=== PATIENT | female | born 1980 | race Caucasian/White ===

== ENCOUNTER 2016-09-23 05:43 | Emergency (ER) | payer OTHER ==
[~2016-09-23] VITALS: Ht 170.2 cm; Wt 55.0 kg
[2016-09-23 05:45] VITALS: BP 124/88; PULSE 90; RESP 20; O2SAT 100
[2016-09-23] MEDS ORDERED: KETOROLAC TROMETHAMINE 60 MG/2 ML (IM) VIAL IM ONE (05:45)
[2016-09-23] MEDS ORDERED: ACETAMINOPHEN/CODEINE 300 MG/30 MG TAB PO ONE (05:45)
[2016-09-23] MEDS ORDERED: ONDANSETRON ODT 4 MG TAB PO ONE (05:45)
[2016-09-23] MEDS ORDERED: DIAZEPAM 10 MG TAB PO ONE (05:45)
--- NOTE | 2016-09-23 05:49 | PD ---
HPI Chief Complaint: lower back pain Time Seen by Provider: 05:40 Travel History International Travel<30 days: No Contact w/Intl Traveler<30days: No Traveled to known affect area: No History of Present Illness HPI 36-year-old female here with lower back pain. She works here as a [employer]. 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 She turned to grab a diaper and she developed lower back pain. She describes it as a tightening/spasm pain that is constant but it is worse when she bends over. She has never had this problem before. Denies any numbness or tingling or weakness in the extremities. No urinary symptoms. She has no significant past medical history. All other complaints. [facility] Social History Alcohol Use: No Tobacco Use: No Substance Use: No Allergies-Medications (Allergen,Severity, Reaction): Coded Allergies: No Known Allergies (Unverified , 09/23/16) Reported Meds & Prescriptions Reported Meds & Active Scripts Active Tylenol-Codeine #3 (Acetaminophen-Codeine) 300-30 mg Tab 1 Tab PO Q4H PRN Ibuprofen 800 Mg Tab 800 Mg PO Q6HR PRN Valium (Diazepam) 5 Mg Tab 5 Mg PO TID PRN Review of Systems Except as stated in HPI: all other systems reviewed are Neg Physical Exam Narrative GENERAL: Well-developed well-nourished female who is sitting in a wheelchair, she appears uncomfortable. SKIN: Warm and dry. HEAD: Atraumatic. Normocephalic. CARDIOVASCULAR: Regular rate and rhythm. No murmur appreciated. RESPIRATORY: No accessory muscle use. Clear to auscultation. Breath sounds equal bilaterally. MUSCULOSKELETAL: No obvious deformities. There is no CVA tenderness. There is no reproducible tenderness to palpation along the lumbar spine or paravertebral musculature. NEUROLOGICAL: Awake and alert. No obvious cranial nerve deficits. Motor grossly within normal limits. Normal speech. Data Data Last Documented VS Orders Diazepam (Valium) (09/23/16 05:45) Acetamin-Codeine 300-30 Mg (Tylenol-Code (09/23/16 05:45) Ondansetron Odt (Zofran Odt) (09/23/16 05:45) Ketorolac Inj (Toradol Inj) (09/23/16 05:45) MDM Medical Decision Making Medical Screen Exam Complete: Yes Emergency Medical Condition: Yes Medical Record Reviewed: Yes Differential Diagnosis Lumbar spasm, lumbar strain, spinal stenosis, piriformis syndrome, herniated nucleus pulposis, compression fracture, rupturing AAA, renal stone Narrative Course 36-year-old female who is having lower back spasming/tightening sensation when she bends over. 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 Her examination and history are consistent with lumbar muscle spasms. The patient will be given Valium, Toradol, Tylenol with Codeine and Zofran. She will be reassessed. At the end of my shift the patient was signed out to the oncoming provider for reevaluation, likely disposition home when feeling improved. She'll be given prescriptions for ibuprofen, Tylenol with Codeine and Valium. She'll be given a note for work for the next 2 days and she is off for 4 days. She is encouraged to follow-up with her primary care physician in 6 days for reevaluation to see if she can return to work 1 week from now. She is agreeable with this plan. Diagnosis Primary Impression: Lumbar paraspinal muscle spasm Additional Instructions: Take medication as prescribed. Do not drive or drink alcohol when taking Valium or Tylenol with Codeine as a May cause sedation. Rest. Avoid heavy lifting or strenuous activity but continued to perform activities of daily living as tolerated. Follow-up with your primary care physician next week for reevaluation. Return for any emergent medical conditions. Med/Other Pt SpecificInfo: Prescription(s) given Scripts Acetaminophen-Codeine (Tylenol-Codeine #3)300-30 mg Tab1 Tab PO Q4H PRN (PAIN) # 20 TAB Ref 0 Prov:Kamron Diaz MD 09/23/16 Ibuprofen 800 Mg Kin960 Mg PO Q6HR PRN (PAIN) #40 TAB Ref 0 Prov:Kamron Diaz MD 09/23/16 Diazepam (Valium)5 Mg Tab5 Mg PO TID PRN (SPASM) #15 TAB Ref 0 Prov:Kamron Diaz MD 09/23/16 Disposition: 01 DISCHARGE HOME Condition: Stable Stewart Atkinson Sep 23, 2016 05:49 Prov:Kamron Diaz MD 09/23/16 Diazepam (Valium)5 Mg Tab5 Mg PO TID PRN (SPASM) #15 TAB Ref 0 Prov:Kamron Diaz MD 09/23/16 Disposition: 01 DISCHARGE HOME Condition: Stable Stewart Atkinson Sep 23, 2016 05:49
[2016-09-23] MEDS ORDERED: DIAZ5 PO (05:52)
[2016-09-23] MEDS ORDERED: IBUP800T23 PO (05:52)
[2016-09-23] MEDS ORDERED: TYLETAB34 PO (05:52)
== END 2016-09-23 07:27 | disposition home or self-care (01) ==
LOC: NEPB 05:43
DX: M62.838 Other muscle spasm (principal)
CPT/HCPCS: 96372; 99283; J1885

== ENCOUNTER 2016-12-01 23:01 | Emergency (ER) | payer OTHER ==
[~2016-12-01] VITALS: Ht 170.2 cm; Wt 53.0 kg
[~2016-12-01 23:01] MED LIST: DIAZ5 PO; IBUP800T23 PO; TYLETAB34 PO
[2016-12-01 23:07] VITALS: BP 120/81; PULSE 82; RESP 14; TEMP 98.4; O2SAT 99
[2016-12-02] MEDS ORDERED: TETANUS/DIPHTHERIA TOXOID ADULT 0.5 ML VIAL IM ONE (00:15)
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
== END 2016-12-02 00:33 | disposition home or self-care (01) ==
LOC: NEPK 23:01
DX: S60.511A Abrasion of right hand, initial encounter (principal); S50.811A Abrasion of right forearm, initial encounter; Z23 Encounter for immunization; W50.4XXA Accidental scratch by another person, initial encounter; Y93.F9 Activity, other caregiving; Y92.239 Unspecified place in hospital as the place of occurrence of the external cause; Y99.0 Civilian activity done for income or pay
CPT/HCPCS: 90471; 90714

== ENCOUNTER → 2017-08-17 | Outpatient (CLI) | payer OTHER ==
[2017-08-17 10:45] LABS: BASOPHIL # 0.1 TH/MM3 (0-0.2); BASOPHIL % 0.8 % (0.0-2.0); EOSINOPHIL # 0.5 TH/MM3 (0-0.4); EOSINOPHIL % 4.7 % (0.0-4.0); HEMO FLAGS DIFF FINAL; LYMPH % 28.9 % (9.0-44.0); LYMPHOCYTE # 2.9 TH/MM3 (1.0-4.8); MEAN CORPUSCULAR HEMOGLOBIN 31.2 PG (27.0-34.0); MEAN CORPUSCULAR HGB CONC 33.9 % (32.0-36.0); MONO % 6.2 % (0.0-8.0); NEUT % 59.4 % (16.0-70.0); PLATELET COUNT 392 TH/MM3 (150-450); RED BLOOD COUNT 4.57 MIL/MM3 (4.00-5.30); RED CELL DISTRIBUTION WIDTH 13.1 % (11.6-17.2); WHITE BLOOD COUNT 10.1 TH/MM3 (4.0-11.0)
[2017-08-17 11:11] LABS: ALT (GPT) 12 U/L (10-53); ANION GAP 5 MEQ/L (5-15); AST (GOT) 10 U/L (15-37); BICARBONATE 26.9 MEQ/L (21.0-32.0); BLOOD UREA NITROGEN 9 MG/DL (7-18); CHLORIDE 108 MEQ/L (98-107); GLOMERULAR FILTRATION RATE 94 ML/MIN (>89); GLUCOSE,FASTING 99 MG/DL (74-99); POTASSIUM 4.3 MEQ/L (3.5-5.1); SODIUM (NA) 140 MEQ/L (136-145)
[2017-08-17 11:14] LABS: ALKALINE PHOSPHATASE 38 U/L (45-117); HDL CHOLESTEROL 83.7 MG/DL (40.0-60.0); LDL CHOLESTEROL 129 MG/DL (0-99); TOTAL BILIRUBIN ADULT 0.5 MG/DL (0.2-1.0)
== END ==
LOC: PLAB 08:31
PROVIDERS: ATTEND Family Medicine
DX: R25.2 Cramp and spasm (principal); E55.9 Vitamin D deficiency, unspecified
CPT/HCPCS: 36415; 80053; 80061; 82306; 85025

== ENCOUNTER → 2017-09-21 | Outpatient (CLI) | payer OTHER ==
[2017-09-21 12:15] LABS: GLUCOSE,FASTING 96 MG/DL (74-99)
[2017-09-21 12:18] LABS: FERRITIN 26 NG/ML (8-252)
== END ==
LOC: PLAB 08:22
PROVIDERS: ATTEND Psychiatry & Neurology Vascular Neurology
DX: M54.5 Low back pain (principal)
CPT/HCPCS: 36415; 82550; 82728; 82947